=== PATIENT | male | born 1965 | race Caucasian/White ===

== ENCOUNTER 2024-12-01 02:36 | Day surgery (SDC) | payer OTHER, SELFPAY ==
[2024-11-18 14:38] VITALS: BMI 23.7
--- NOTE | 2024-11-18 14:45 | PC.NURSE ---
Report to the Outpatient Waiting Room, entrance under the green pavilion located off [facility], at time _1100__ on date _12/01/24_. Planned Procedure Time: _1300_.? Time changes happen often and if your time is changed the preop area will call you the afternoon before. - You and your visitor will be asked to self-screen and do not enter if you have any COVID symptoms. Please call surgeon if you need to reschedule. - A mask is optional within the hospital at this time. Patients may have clear liquids (water, carbonated beverages, clear teas, apple juice) until 3 hours prior to surgery with a maximum of 20 ounces. - No food from midnight until time of surgery and no smoking, or chewing tobacco (or any form of nicotine). No chewing gum, candy or mints. - Infants may have breast milk until 4 hours before surgery, infant formula 6 hours prior to surgery. - Children will be allowed to drink immediately following surgery.? If applicable, please bring a bottle or sippy cup to assist with drinking. Juice, water, soda, and popsicles are readily available.? For infants on formula, please bring formula the day of surgery.? Pacifiers are allowed. Take only the following medications with a SIP of water on the morning of surgery: ___AMLODIPINE, NEBIVOLOL DO NOT STOP ANY OF YOUR OTHER PRESCRIPTION MEDICATIONS PRIOR TO SURGERY EXCEPT THE FOLLOWING Hold all vitamins and supplements for 3 days per anesthesiologist. Medications to discontinue per physician Date to take last dose Please no make-up, nail romanian, hairspray, perfume, deodorant, or body powder the day of surgery.? No jewelry (including any body piercings) or valuables the day of surgery, leave them at home.? Please take a shower or bath the night before, or the morning of, surgery with an antibacterial soap.? Wear comfortable, loose fitting clothing.? Children are encouraged to wear pajamas. - Jewelry must be removed prior to entering the operating room.? Rings and piercings that are not removed may be cut off. - The hospital will not accept responsibility for valuables.? - Please leave all valuables, including medications, at home the day of surgery. If you are going home after surgery, a licensed septic pump truck driver must drive you home.? - NO public transportation without another adult if you receive anesthesia. - We recommend that an adult stay with you for 24 hours following discharge. - We also recommend that you do not drive, make important decision, drink alcoholic beverages, or take any drugs that were not prescribed by your health care provider for at least 24 hours after your discharge time. For Pediatric surgeries, we recommend two adults accompany the child home. Follow any additional instructions given to you from your surgeon. Telephone instructions given to PATIENT__and asked if any additional questions and then verbalized understanding. Patient advised to call surgeon office or pre surgery nurse liaison [phone] if any additional questions.
[2024-12-01] VITALS (10 sets, daily range): BP systolic 105–150; BP diastolic 45–73; PULSE 48–87; RESP 12–22; TEMP 36–36.2; O2SAT 97–100
--- OUTSIDE RECORDS SUMMARY | 2024-12-01 02:39 | XMS_ITS | Clinical Summary ---
Author Organization [facility] Address [address] [place] [address] Phone Care Team Providers Care Weblogic Developer Name Role Phone Unavailable Primary Care Provider Unavailabl e Social History Tobacco Use Types Packs/Day Years Used Date Smoking Tobacco: Never Assessed Sex and Gender Information Value Date Recorded Sex Assigned at Not on file Gender Identity Not on file Sexual Orientation Not on file Plan of Treatment Health Maintenance Due Date Last Done Comments Diabetic Foot Exam 1974 Ophthalmology Exam 1974 Pneumococcal PPSV23 Highest Risk Adult (1 of 3 - PCV13 ) 11/24/1983 Influenza Vaccine (#1) 2024
--- OUTSIDE RECORDS SUMMARY | 2024-12-01 02:39 | XMS_ITS | Clinical Summary ---
Author Organization [facility] [address] [place] [address] Care Team Providers Care Database Manager Name Role Phone Maxime Keen MD Primary Care Provider [phone] Allergies No known active allergies Medications metFORMIN (GLUCOPHAGE) 500 mg tablet Take 1 tablet (500 mg total) by mouth 2 (two) times a day with meals Active losartan-hydroCH LOROthiazide (HYZAAR) 100-12.5 mg per tablet Take 1 tablet by mouth daily Active rosuvastatin (CRESTOR) 20 mg tablet Take 1 tablet (20 mg total) by mouth daily Active empagliflozin (JARDIANCE) 25 mg tablet Take 1 tablet (25 mg total) by mouth daily Active nebivoloL (BYSTOLIC) 20 mg tablet Take 1 tablet (20 mg total) by mouth daily Active amLODIPine (NORVASC) 10 mg tablet Take 1 tablet (10 mg total) by mouth daily Active Active Problems Problem Noted Date Diagnosed Date Pre-operative cardiovascular examination 024 Stage 2 chronic kidney disease 07/16/2024 Hyperlipidemia associated with type 2 diabetes m ellitus 07/16/2024 Hypertension associated with diabetes 07/16/2024 Encounters Date Type Department Care Team Description 11/18/2024 Telephone [facility] Cardiology [address] [place] [address] Stew Villeda MD 11/04/2024 9:37 AM SUPERVISOR INSTRUMENT MAINTENANCE - 11/04/2024 11:59 PM SUPERVISOR INSTRUMENT MAINTENANCE Hospital Encounter [address] [address] Mixed hyperlipidemia; Encounter for screening for malignant neoplasm of prostate Discharge Disposition: Discharge to home or self care 11/04/2024 9:15 AM SUPERVISOR INSTRUMENT MAINTENANCE Lab [facility] Outpatient Lab at [address] [address] Mixed hyperlipidemia (Primary Dx); Encounter for screening for malignant neoplasm of prostate from Last 3 Months Surgical History Surgery Date Site/Laterality Comments BACK SURGERY 09/02/1999 - 09/01/2000 Medical History Medical History Date Comments Diabetes mellitus (HCC) Hypertension Hyperlipidemia Family History Medical History Relation Name Comments Heart disease Father Hyperlipidemia Father Cancer Mother Relation Name Status Comments Father Mother Social History Tobacco Use Types Packs/Day Years Used Date Smoking Tobacco: Never Cigarettes Smokeless Tobacco: Never Tobacco Cessation:Counseling Given: Not Answered Sex and Gender Information Value Date Recorded Sex Assigned at Not on file Legal Sex Male 9:47 AM SUPERVISOR INSTRUMENT MAINTENANCE Gender Identity Not on file Sexual Orientation Not on file Obstetrics History Last Filed Vital Signs Vital Sign Reading Time Taken Comments Blood Pressure 132/84 08/28/2024 1:42 PM SUPERVISOR INSTRUMENT MAINTENANCE Pulse 66 08/28/2024 1:42 PM SUPERVISOR INSTRUMENT MAINTENANCE Temperature - - Respiratory Rate - - Oxygen Saturation 91% 08/28/2024 1:42 PM SUPERVISOR INSTRUMENT MAINTENANCE Inhaled Oxygen Concentration - - Weight 79.4 kg (175 lb) 08/28/2024 1:42 PM SUPERVISOR INSTRUMENT MAINTENANCE Height 177.8 cm (5' 10 ) 08/28/2024 1:42 PM SUPERVISOR INSTRUMENT MAINTENANCE Body Mass Index 25.11 08/28/2024 1:42 PM SUPERVISOR INSTRUMENT MAINTENANCE Plan of Treatment Health Maintenance Due Date Last Done Comments Colon Cancer Screening-Colonoscopy 1964 Depression Screening 1964 Hepatitis C Screening 1964 Dilated Eye Exam 1964 Foot Exam 1964 DTaP/Tdap/Td Vaccine (1 - Tdap) 11/24/1975 Hepatitis B Screening 1982 Regular Well Visit/Exam 18-64 1982 Pneumococcal vaccine <65 (1 of 2 - PCV) 11/24/1983 Zoster Vaccine (1 of 2) 2014 Influenza Vaccine (#1) 2024 Hemoglobin A1C 05/07/2025 11/04/2024 Albumin Creatinine Ratio, Urine 11/04/2025 5, 07/08/2024 Lipid Panel 11/04/2025 11/04/2024, 12/2 03/2024, 07/08/2024, Additional history exists eGFR 11/04/2025 11/04/2024, 11/0 02/2024, 03/25/2024, Additional history exists Prostate Cancer Screening-PSA 11/04/2026 11/04/2024, 03/25/2024 Procedures Procedure Name Priority Date/Time Associated Diagnosis Comments EGFR Routine 11/04/2024 9:37 AM SUPERVISOR INSTRUMENT MAINTENANCE Mixed hyperlipidemia Encounter for screening for malignant neoplasm of prostate DIFFERENTIAL AUTO Routine 11/04/2024 9:3 7 AM SUPERVISOR INSTRUMENT MAINTENANCE Mixed hyperlipidemia Encounter for screening for malignant neoplasm of prostate PSA DIAGNOSTIC Routine 11/04/2024 9:37 AM SUPERVISOR INSTRUMENT MAINTENANCE Mixed hyperlipidemia Encounter for screening for malignant neoplasm of prostate TSH Routine 11/04/2024 9:37 AM SUPERVISOR INSTRUMENT MAINTENANCE Mixed hyperlipidemia Encounter for screening for malignant neoplasm of prostate COMPREHENSIVE METABOLIC PANEL Routine 11/04/2024 9:37 AM SUPERVISOR INSTRUMENT MAINTENANCE Mixed hyperlipidemia Encounter for screening for malignant neoplasm of prostate CBC WITH AUTO DIFFERENTIAL Routine 11/04/2024 9:37 AM SUPERVISOR INSTRUMENT MAINTENANCE Mixed hyperlipidemia Encounter for screening for malignant neoplasm of prostate ALBUMIN CREATININE RATIO, URINE Routine 11/04/2024 9:37 AM SUPERVISOR INSTRUMENT MAINTENANCE Mixed hyperlipidemia Encounter for screening for malignant neoplasm of prostate LIPID PANEL Routine 11/04/2024 9:37 AM SUPERVISOR INSTRUMENT MAINTENANCE Mixed hyperlipidemia Encounter for screening for malignant neoplasm of prostate HEMOGLOBIN A1C Routine 11/04/2024 9:37 AM SUPERVISOR INSTRUMENT MAINTENANCE Mixed hyperlipidemia Encounter for screening for malignant neoplasm of prostate from Last 3 Months Results * (ABNORMAL) eGFR (11/04/2024 9:37 AM SUPERVISOR INSTRUMENT MAINTENANCE) eGFR 53(L) >=60 mL/min/1. 73 m2 Comment: Interpretive Data Reference Interval Normal >/= 90 mL/min/1.73m2 Mildly decreased* 60 - 89 mL/min/1.73m2 Mildly to moderately decreased 45 - 59 mL/min/1.73m2 Moderately to severely decreased 30 - 44 mL/min/1.73m2 Severely decreased 15 - 29 mL/min/1.73m2 Kidney Failure < 15 mL/min/1.73m2 *Relative to young adult level Estimated glomerular filtration rate is determined by the 2020 CKD-EPI equation recommended by the National Kidney Foundation (A Unifying Approach to GFR Estimation: Recommendations of the NKF-ASK Task Force on Reassessing the Inclusion of Race in Diagnosing Kidney Disease, JASN 2020). The CKD-EPI equation should not be used for patients with unstable renal function and has not been validated in children and those over 70. Current interpretive data was last reviewed 2021. Blood 11/04/2024 9:37 AM SUPERVISOR INSTRUMENT MAINTENANCE 11/04/2024 3:38 PM SUPERVISOR INSTRUMENT MAINTENANCE Sri Botello NP LAB BLOOD ORDERABLES nal Result [facility] [address] Department of Laboratories [place] [phone] * Differential, auto (11/04/2024 9:37 AM SUPERVISOR INSTRUMENT MAINTENANCE) Neutrophil abs 4.5 1.5 - 6.5 K/cumm Imm gran abs 0.0 0.0 - 0.1 K/cumm [facility] Lymphocyte abs 2.0 0.8 - 3.3 K/cumm [facility] Monocyte abs 0.4 0.2 - 0.8 K/cumm [facility] Eosinophil abs 0.3 0.0 - 0.5 K/cumm [facility] Basophil abs 0.1 0.0 - 0.1 K/cumm [facility] Neutrophil pct 61.9 % [facility] Comment: Interpretive Data Percent cell count reference ranges are not reported, since discordance with absolute values may lead to misinterpretation of CBC data. Current Interpretive Data was last revised on 2017. Imm gran pct 0.3 % [facility] Comment: Interpretive Data Percent cell count reference ranges are not reported, since discordance with absolute values may lead to misinterpretation of CBC data. Current Interpretive Data was last revised on 2017. Lymphocyte pct 28.0 % [facility] Comment: Interpretive Data Percent cell count reference ranges are not reported, since discordance with absolute values may lead to misinterpretation of CBC data. Current Interpretive Data was last revised on 2017. Monocyte pct 5.5 % [facility] Comment: Interpretive Data Percent cell count reference ranges are not reported, since discordance with absolute values may lead to misinterpretation of CBC data. Current Interpretive Data was last revised on 2017. Eosinophil pct 3.6 % [facility] Comment: Interpretive Data Percent cell count reference ranges are not reported, since discordance with absolute values may lead to misinterpretation of CBC data. Current Interpretive Data was last revised on 2017. Basophil pct 0.7 % [facility] Comment: Interpretive Data Percent cell count reference ranges are not reported, since discordance with absolute values may lead to misinterpretation of CBC data. Current Interpretive Data was last revised on 2017. Blood 11/04/2024 9:37 AM SUPERVISOR INSTRUMENT MAINTENANCE 11/04/2024 3:25 PM SUPERVISOR INSTRUMENT MAINTENANCE us Sri Botello NP LAB BLOOD ORDERABLES [facility] Result [facility] [address] [place] [address] * (ABNORMAL) CBC with auto differential (11/04/2024 9:37 AM SUPERVISOR INSTRUMENT MAINTENANCE) WBC 7.2 3.8 - 9.9 K/cumm Hgb 15.3 13.0 - 17.5 g/dL [facility] Hct 48.1 38.9 - 50.3 % [facility] Plt 266 150 - 400 K/cumm [facility] MPV 11.8 9.1 - 12.3 fL [facility] RBC 5.40 4.30 - 5.80 M/cumm [facility] MCV 89.1 81.3 - 96.4 fL [facility] MCH 28.3 27.1 - 33.3 pg [facility] MCHC 31.8(L) 32.3 - 35.7 g/dL [facility] RDW CV 13.2 11.1 - 14.9 % [facility] RDW SD 43.1 35.7 - 48.1 fL [facility] NRBC abs 0.00 0.00 - 0.01 K/cumm [facility] Blood 11/04/2024 9:37 AM SUPERVISOR INSTRUMENT MAINTENANCE 11/04/2024 3:25 PM SUPERVISOR INSTRUMENT MAINTENANCE Sri Botello PATIENT SERVICE REP LAB BLOOD ORDERABLES Fi nal Result Performing Organization Address City/[facility] Co de Phone Number [facility] [address] [place] [address] * Albumin Creatinine Ratio, Urine (11/04/2024 9:37 AM SUPERVISOR INSTRUMENT MAINTENANCE) Albumin Ur <12.0 mg/L Comment: Interpretive Data No reference range established. Current interpretive data was last revised 2019. Creatinine Ur 105.3 mg/dL [facility] Comment: Interpretive Data No reference range established. Current interpretive data was last revised 2019. Albumin Creatinine Ratio, Ur <11 1 - 29 mg/g [facility] Urine (Urine, Clean Catch) 11/04/2024 9:37 AM SUPERVISOR INSTRUMENT MAINTENANCE 11/04/2024 3:25 PM SUPERVISOR INSTRUMENT MAINTENANCE Narrative [facility] - 11/04/2024 4:08 PM SUPERVISOR INSTRUMENT MAINTENANCE Fax results to [phone] Sri Botello Sri Botello PATIENT SERVICE REP LAB URINE ORDERABLES Fi nal Result Performing Organization Address [facility] Co de Phone Number [facility] [address] Department [place] [employer] [address] * TSH (11/04/2024 9:37 AM SUPERVISOR INSTRUMENT MAINTENANCE) Thyroid Stimulating Hormone 1.04 0.30 - 4.20 mcIUnit/mL Blood Venous blood specimen / Unknown 11/04/2024 9:37 AM SUPERVISOR INSTRUMENT MAINTENANCE 11/04/2024 3:25 PM SUPERVISOR INSTRUMENT MAINTENANCE Sri Botello PATIENT SERVICE REP LAB BLOOD ORDERABLES Fi nal Result Performing Organization Address [facility] Co de Phone Number [facility] [address] [facility] [employer] [place], [place] [id number] * PSA diagnostic (11/04/2024 9:37 AM SUPERVISOR INSTRUMENT MAINTENANCE) PSA-Total 1.08 <=3.90 ng/mL Comment: Interpretive Data AGE SEX REFERENCE INTERVAL 0 minutes-150 years Female None 0 minutes-49 years Male None 50-59 years Male 0-3.90 60-69 years Male 0-5.40 70-79 years Male 0-6.20 80-150 years Male 0-6.20 The Amina PSA Total assay procedure was used. Results from different manufacturers or methods may not be comparable. Serial testing should be performed using the same method. Current interpretive data last revised 22. Blood Venous blood specimen / Unknown 11/04/2024 9:37 AM SUPERVISOR INSTRUMENT MAINTENANCE 11/04/2024 3:25 PM SUPERVISOR INSTRUMENT MAINTENANCE Narrative [facility] - 11/04/2024 5:35 PM SUPERVISOR INSTRUMENT MAINTENANCE Fax results to [phone] Sri Botello Sri Botello PATIENT SERVICE REP LAB BLOOD ORDERABLES Fi nal Result Performing Organization Address [facility] de Phone Number [facility] [address] [facility] [place] [address] * (ABNORMAL) Hemoglobin A1c (11/04/2024 9:37 AM SUPERVISOR INSTRUMENT MAINTENANCE) Hgb A1C 9.7(H) 4.0 - 5.6 % Estimated Average Glucose 232 mg/dL [facility] Comment: The ADA recommends reporting an estimated Average Glucose (eAG) with all Hemoglobin A1c results using the equation derived from a study of 507 normal and diabetic adults. Minority populations were underrepresented and children were not included. (Diabetes Care 31:9260-4057, 2008). The eAG is not equivalent to a fasting glucose. Blood Venous blood specimen / Unknown 11/04/2024 9:37 AM SUPERVISOR INSTRUMENT MAINTENANCE 11/04/2024 3:25 PM SUPERVISOR INSTRUMENT MAINTENANCE Narrative [facility] - 11/04/2024 4:11 PM SUPERVISOR INSTRUMENT MAINTENANCE Fax results to [phone] Sri Botello Sri Botello NP LAB BLOOD ORDERABLES Fi nal Result [facility] [address] [place] [address] * (ABNORMAL) Lipid panel (11/04/2024 9:37 AM SUPERVISOR INSTRUMENT MAINTENANCE) Cholesterol 204(H) 30 - 199 mg/dL Comment: Interpretive Data Ages < or = 19 years Acceptable: <170 mg/dL Borderline high: 170-199 mg/dL High: >or= 200 mg/dL Ages > or = 20 years Desirable: <200 mg/dL Borderline high: 200-239 mg/dL High: >or= 240 mg/dL Literature References: 1. Expert Panel on Integrated Guidelines for Cardiovascular Health and Risk Reduction in Children and Adolescents. Pediatrics 2011;128:S213 2. NCEP Expert Panel. Circulation 2004;110:227 Current Interpretive Data was last revised on 2018. Triglycerides 155(H) <=149 mg/dL [facility] Comment: Interpretive Data Ages < or = 9 years Acceptable: <75 mg/dL Borderline high: 75-99 mg/dL High: >or= 100 mg/dL Ages 10 to 20 years Acceptable: <90 mg/dL Borderline high: 90-129 mg/dL High: >or= 130 mg/dL Ages > or = 20 years Desirable: <150 mg/dL Borderline high: 150-199 mg/dL High: 200-499 mg/dL Very high: >or= 499 mg/dL Literature References: 1. Expert Panel on Integrated Guidelines for Cardiovascular Health and Risk Reduction in Children and Adolescents. Pediatrics 2011;128:S213 2. NCEP Expert Panel. Circulation 2004;110:227 Current Interpretive Data was last revised on 2018. HDL 45 >=40 mg/dL [facility] Comment: Interpretive Data Ages < or = 19 years Acceptable: >45 mg/dL Borderline low: 40-45 mg/dL Low: <40 mg/dL Ages > or = 20 years Desirable: >or= 60 mg/dL Low: <40 mg/dL Literature References: 1. Expert Panel on Integrated Guidelines for Cardiovascular Health and Risk Reduction in Children and Adolescents. Pediatrics 2011;128:S213 2. NCEP Expert Panel. Circulation 2004;110:227 Current Interpretive Data was last revised on 2018. LDL, calculated 131(H) <=129 mg/dL [facility] Comment: Interpretive Data Ages < or = 19 years Acceptable: <110 mg/dL Borderline high: 110-129 mg/dL High: >or= 130 mg/dL Ages > or = 20 years Optimal: <100 mg/dL Near optimal: 100-129 mg/dL Borderline high: 130-159 mg/dL High: >160 mg/dL Calculated using the Dmitri LDL-C estimating equation. This equation was implemented on 2024. Prior to this date LDL-C was estimated using the Friedewald equation. Literature References: 1. Expert Panel on Integrated Guidelines for Cardiovascular Health and Risk Reduction in Children and Adolescents. Pediatrics 2011;128:S213 2. NCEP Expert Panel. Circulation 2004;110:227 3. Dmitri Mclaughlin et al. ERASMO Cardiol. 2019December 31;5(5):540-548. doi: 10.1001/jamacardio.2020.0013 Current Interpretive Data was last revised on 2024. Non-HDL Cholesterol 159 mg/dL [facility] Comment: Interpretive Data Ages < or = 19 years Acceptable: <120 mg/dL Borderline high: 120-144 mg/dL High: >145 mg/dL Ages > or = 20 years When triglycerides are >200 mg/dL, Non-HDL cholesterol is a secondary target of therapy with treatment goals that are 30 mg/dL greater than the LDL cholesterol target. Literature References: 1. Expert Panel on Integrated Guidelines for Cardiovascular Health and Risk Reduction in Children and Adolescents. Pediatrics 2011;128:S213 2. NCEP Expert Panel. Circulation 2004;110:227 Current Interpretive Data was last revised on 2018. Chol/HDL ratio 5 [facility] Blood Venous blood specimen / Unknown 11/04/2024 9:37 AM SUPERVISOR INSTRUMENT MAINTENANCE 11/04/2024 3:25 PM SUPERVISOR INSTRUMENT MAINTENANCE Narrative [facility] - 11/04/2024 4:26 PM SUPERVISOR INSTRUMENT MAINTENANCE Fax results to [phone] Sri Botello Sri Botello PATIENT SERVICE REP LAB BLOOD ORDERABLES Fi nal Result [facility] [address] [place] [address] * (ABNORMAL) Comprehensive metabolic panel (11/04/2024 9:37 AM SUPERVISOR INSTRUMENT MAINTENANCE) Sodium 140 135 - 145 mmol/L Potassium, pl 4.3 3.3 - 4.9 mmol/L [facility] Chloride 101 97 - 110 mmol/L [facility] CO2 26 22 - 32 mmol/L [facility] Anion gap 13 2 - 15 mmol/L [facility] BUN 21 6 - 25 mg/dL [facility] Creatinine 1.50(H) 0.80 - 1.30 mg/dL [facility] Glucose 232(H) 70 - 199 mg/dL [facility] Comment: Interpretive Data Fasting glucose >/= 126 mg/dl is diagnostic for diabetes. Fasting is defined as no caloric intake for at least 8 hours. Fasting glucose between 100 mg/dl to 125 mg/dl is diagnostic of prediabetes. In a patient with classic symptoms of hyperglycemia or hyperglycemic crisis, a random glucose >/= 200 mg/dl is diagnostic for diabetes. In the absence of unequivocal hyperglycemia, results should be confirmed by repeat testing. The classification and Diagnosis of Diabetes Diabetes Care 202; 46: S19-S40. Current interpretive data was last revised 2022. Calcium 9.6 8.5 - 10.3 mg/dL [facility] Bilirubin, total 0.6 0.1 - 1.2 mg/dL [facility] Protein, pl 6.9 6.5 - 8.5 g/dL [facility] Albumin 4.2 3.5 - 5.0 g/dL [facility] Alk phos 62 40 - 130 Units/L [facility] ALT 19 7 - 55 Units/L [facility] AST 21 10 - 50 Units/L [facility] Blood Venous blood specimen / Unknown 11/04/2024 9:37 AM SUPERVISOR INSTRUMENT MAINTENANCE 11/04/2024 3:25 PM SUPERVISOR INSTRUMENT MAINTENANCE Narrative [facility] - 11/04/2024 4:26 PM SUPERVISOR INSTRUMENT MAINTENANCE Fax results to [phone] Sri Botello Sri Botello PATIENT SERVICE REP LAB BLOOD ORDERABLES Fi nal Result [facility] [address] [place] [address] from Last 3 Months Insurance [facility] [employer] Address: [address] [place] [address] Care Teams Database Manager Relationship Specialty Start Date End Date Maxime Keen MD PCP - General Family Medicine 04/20/22
--- OUTSIDE RECORDS SUMMARY | 2024-12-01 02:39 | XMS_ITS | Referral Summary ---
Author Organization [facility] [address] Address [address] [place] [id number] Care Team Providers Care Supervisor Pre Wave Name Role Phone Maxime Keen MD Primary Care Provider [phone] Encounters Date Type Department Care Team Description 11/18/2024 Telephone [facility] Cardiology [address] [place] [address] Stew Villeda MD 11/04/2024 9:37 AM CHANCERY CLERK - 11/04/2024 11:59 PM CHANCERY CLERK [place] [address] Mixed hyperlipidemia; Encounter for screening for malignant neoplasm of prostate Discharge Disposition: Discharge to home or self care 11/04/2024 9:15 AM CHANCERY CLERK Lab [facility] Outpatient Lab at [address] [address] Mixed hyperlipidemia (Primary Dx); Encounter for screening for malignant neoplasm of prostate from Last 3 Months Allergies No known active allergies Medications metFORMIN [...] ellitus 07/16/2024 Hypertension associated with diabetes 07/16/2024 Social History Tobacco Use Types Packs/Day Years Used Date Smoking Tobacco: Never Cigarettes Smokeless Tobacco: Never Tobacco Cessation:Counseling Given: Not Answered Sex and Gender Information Value Date Recorded Sex Assigned at Not on file Legal Sex Male 9:47 AM CHANCERY CLERK Gender Identity Not on file Sexual Orientation Not on file Last Filed Vital Signs Vital Sign Reading Time Taken Comments Blood Pressure 132/84 08/28/2024 1:42 PM CHANCERY CLERK Pulse 66 08/28/2024 1:42 PM CHANCERY CLERK Temperature - - Respiratory Rate - - Oxygen Saturation 91% 08/28/2024 1:42 PM CHANCERY CLERK Inhaled Oxygen Concentration - - Weight 79.4 kg (175 lb) 08/28/2024 1:42 PM CHANCERY CLERK Height 177.8 cm (5' 10 ) 08/28/2024 1:42 PM CHANCERY CLERK Body Mass Index 25.11 08/28/2024 1:42 PM CHANCERY CLERK Plan of Treatment Not on file Procedures Procedure Name Priority Date/Time Associated Diagnosis Comments EGFR Routine 11/04/2024 9:37 AM CHANCERY CLERK Mixed hyperlipidemia Encounter for screening for malignant neoplasm of prostate DIFFERENTIAL AUTO Routine 11/04/2024 9:3 7 AM CHANCERY CLERK Mixed hyperlipidemia Encounter for screening for malignant neoplasm of prostate PSA DIAGNOSTIC Routine 11/04/2024 9:37 AM CHANCERY CLERK Mixed hyperlipidemia Encounter for screening for malignant neoplasm of prostate TSH Routine 11/04/2024 9:37 AM CHANCERY CLERK Mixed hyperlipidemia Encounter for screening for malignant neoplasm of prostate COMPREHENSIVE METABOLIC PANEL Routine 11/04/2024 9:37 AM CHANCERY CLERK Mixed hyperlipidemia Encounter for screening for malignant neoplasm of prostate CBC WITH AUTO DIFFERENTIAL Routine 11/04/2024 9:37 AM CHANCERY CLERK Mixed hyperlipidemia Encounter for screening for malignant neoplasm of prostate ALBUMIN CREATININE RATIO, URINE Routine 11/04/2024 9:37 AM CHANCERY CLERK Mixed hyperlipidemia Encounter for screening for malignant neoplasm of prostate LIPID PANEL Routine 11/04/2024 9:37 AM CHANCERY CLERK Mixed hyperlipidemia Encounter for screening for malignant neoplasm of prostate HEMOGLOBIN A1C Routine 11/04/2024 9:37 AM CHANCERY CLERK Mixed hyperlipidemia Encounter for screening for malignant neoplasm of prostate from Last 3 Months Results * (ABNORMAL) eGFR (11/04/2024 9:37 AM CHANCERY CLERK) eGFR 53(L) >=60 mL/min/1. 73 m2 Comment: [...] of Race in Diagnosing Kidney Disease, JASN 202). The CKD-EPI equation should not be used for patients with unstable renal function and has not been validated in children and those over 70. Current interpretive data was last reviewed 2021. Blood 11/04/2024 9:37 AM CHANCERY CLERK 11/04/2024 3:38 PM CHANCERY CLERK us Sri Botello NP LAB BLOOD ORDERABLES Fi nal Result [facility]IA FINE [address] [place] [address] * Differential, auto (11/04/2024 9:37 AM CHANCERY CLERK) Neutrophil abs 4.5 1.5 - 6.5 K/cumm Imm gran abs 0.0 0.0 - 0.1 K/cumm [facility] Lymphocyte abs 2.0 0.8 - 3.3 K/cumm [facility] Monocyte abs 0.4 0.2 - 0.8 K/cumm [facility] Eosinophil abs 0.3 0.0 - 0.5 K/cumm [facility] Basophil abs 0.1 0.0 - 0.1 K/cumm [facility] Neutrophil pct 61.9 % [facility] Comment: Interpretive Data Percent cell count reference ranges are not reported, since discordance with absolute values may lead to misinterpretation of CBC data. Current Interpretive Data was last revised on 2017. Imm gran pct 0.3 % [facility] Comment: Interpretive Data Percent cell count reference ranges are not reported, since discordance with absolute values may lead to misinterpretation of CBC data. Current Interpretive Data was last revised on 2017. Lymphocyte pct 28.0 % [facility] Comment: Interpretive Data Percent cell count reference ranges are not reported, since discordance with absolute values may lead to misinterpretation of CBC data. Current Interpretive Data was last revised on 2017. Monocyte pct 5.5 % [facility] Comment: Interpretive Data Percent cell count reference ranges are not reported, since discordance with absolute values may lead to misinterpretation of CBC data. Current Interpretive Data was last revised on 2017. Eosinophil pct 3.6 % [facility] Comment: Interpretive Data Percent cell count reference ranges are not reported, since discordance with absolute values may lead to misinterpretation of CBC data. Current Interpretive Data was last revised on 2017. Basophil pct 0.7 % [facility] Comment: Interpretive Data Percent cell count reference ranges are not reported, since discordance with absolute values may lead to misinterpretation of CBC data. Current Interpretive Data was last revised on 2017. Blood 11/04/2024 9:37 AM CHANCERY CLERK 11/04/2024 3:25 PM CHANCERY CLERK us Sri Botello [employer] [facility] LAB BLOOD ORDERABLES Fi nal Result [facility]IA FINE [address] Department [place] [address] * (ABNORMAL) CBC with auto differential (11/04/2024 9:37 AM CHANCERY CLERK) [facility] WBC 7.2 3.8 - 9.9 K/cumm Hgb 15.3 13.0 - 17.5 g/dL [facility] Hct 48.1 38.9 - 50.3 % [facility] Plt 266 150 - 400 K/cumm [facility] MPV 11.8 9.1 - 12.3 fL [facility] RBC 5.40 4.30 - 5.80 M/cumm [facility] MCV 89.1 81.3 - 96.4 fL [facility] MCH 28.3 27.1 - 33.3 pg [facility] MCHC 31.8(L) 32.3 - 35.7 g/dL [facility] RDW CV 13.2 11.1 - 14.9 % [facility] RDW SD 43.1 35.7 - 48.1 fL [facility] NRBC abs 0.00 0.00 - 0.01 K/cumm [facility] Blood 11/04/2024 9:37 AM CHANCERY CLERK 11/04/2024 3:25 PM CHANCERY CLERK Sri Botello [employer] LAB BLOOD ORDERABLES Fi nal Result ANAMARIA FINE [address] Department [place] [address] * Albumin Creatinine Ratio, Urine (11/04/2024 9:37 AM CHANCERY CLERK) [facility] Albumin Ur <12.0 mg/L Comment: Interpretive Data No reference range established. Current interpretive data was last revised 2019. Creatinine Ur 105.3 mg/dL [facility] Comment: Interpretive Data No reference range established. Current interpretive data was last revised 2019. Albumin Creatinine Ratio, Ur <11 1 - 29 mg/g [facility] Urine (Urine, Clean Catch) 11/04/2024 9:37 AM CHANCERY CLERK 11/04/2024 3:25 PM CHANCERY CLERK Narrative ANAMARIA - 11/04/2024 4:08 PM CHANCERY CLERK Fax results to [phone] Sri Botello us Sri Botello [employer] LAB URINE ORDERABLES Fi nal Result Performing Organization Address [facility] Co de Phone Number ANAMARIA [address] [facility] [place] [address] * TSH (11/04/2024 9:37 AM CHANCERY CLERK) Thyroid Stimulating Hormone 1.04 0.30 - 4.20 mcIUnit/mL Blood Venous blood specimen / Unknown 11/04/2024 9:37 AM CHANCERY CLERK 11/04/2024 3:25 PM CHANCERY CLERK Sri Botello [employer] LAB BLOOD ORDERABLES Fi nal Result Performing Organization Address [facility] de Phone Number [facility] [address] [place] [address] * PSA diagnostic (11/04/2024 9:37 AM CHANCERY CLERK) PSA-Total 1.08 <=3.90 ng/mL Comment: Interpretive Data [...] blood specimen / Unknown 11/04/2024 9:37 AM CHANCERY CLERK 11/04/2024 3:25 PM CHANCERY CLERK Narrative ANAMARIA - 11/04/2024 5:35 PM CHANCERY CLERK Fax results to [phone] Sri Botello Sri Botello [employer] LAB BLOOD ORDERABLES Fi nal Result Performing Organization Address [facility]/State/ZIP Co de Phone Number ANAMARIA [address] Department [place] [address] * (ABNORMAL) Hemoglobin A1c (11/04/2024 9:37 AM CHANCERY CLERK) Hgb A1C 9.7(H) 4.0 - 5.6 % Estimated Average Glucose 232 mg/dL [facility] Comment: The ADA recommends reporting an estimated Average Glucose (eAG) with all Hemoglobin A1c results using the equation derived from a study of 507 normal and diabetic adults. Minority populations were underrepresented and children were not included. (Diabetes Care 31:6879-3298, 2008). The eAG is not equivalent to a fasting glucose. Blood Venous blood specimen / Unknown 11/04/2024 9:37 AM CHANCERY CLERK 11/04/2024 3:25 PM CHANCERY CLERK Narrative ANAMARIA - 11/04/2024 4:11 PM CHANCERY CLERK Fax results to [phone] Sri Botello Sri Botello [employer] LAB BLOOD ORDERABLES nal Result ANAMARIA [address] Department [place] [address] * (ABNORMAL) Lipid panel (11/04/2024 9:37 AM CHANCERY CLERK) Cholesterol 204(H) 30 - 199 mg/dL Comment: [...] on 2018. Triglycerides 155(H) <=149 mg/dL [facility]INE Comment: Interpretive Data Ages [...] 2018. LDL, calculated 131(H) <=129 mg/dL ANAMARIA Comment: Interpretive Data Ages < [...] NCEP Expert Panel. Circulation 2004;110:227 3. Dmitri Thomas al. ERASMO Cardiol. 2020 December 31;5(5):540-548. doi: 10.1001/jamacardio.2020.0013 Current Interpretive Data was last revised on 2024. Non-HDL Cholesterol 159 mg/dL ANAMARIA Comment: Interpretive Data Ages < [...] last revised on 2018. Chol/HDL ratio 5 [facility]ER Blood Venous blood specimen / Unknown 11/04/2024 9:37 AM CHANCERY CLERK 11/04/2024 3:25 PM CHANCERY CLERK Narrative [facility] CH - 11/04/2024 4:26 PM CHANCERY CLERK Fax results to [phone] Sri Botello Sri Botello [employer] LAB BLOOD ORDERABLES nal Result [facility] [address] Department [place] [address] * (ABNORMAL) Comprehensive metabolic panel (11/04/2024 9:37 AM CHANCERY CLERK) Sodium 140 135 - 145 mmol/L Potassium, pl 4.3 3.3 - 4.9 mmol/L [facility] Chloride 101 97 - 110 mmol/L [facility] CO2 26 22 - 32 mmol/L [facility] Anion gap 13 2 - 15 mmol/L [facility] BUN 21 6 - 25 mg/dL [facility] Creatinine 1.50(H) 0.80 - 1.30 mg/dL [facility] Glucose 232(H) 70 - 199 mg/dL [facility] Comment: Interpretive Data Fasting glucose >/= 126 [...] blood specimen / Unknown 11/04/2024 9:37 AM CHANCERY CLERK 11/04/2024 3:25 PM CHANCERY CLERK Narrative [facility]ERNER CH - 11/04/2024 4:26 PM CHANCERY CLERK Fax results to [phone] Sri Botello Sri Botello [employer] LAB BLOOD ORDERABLES nal Result ANAMARIA [address] [place] [address] from Last 3 Months Insurance [facility] [employer] Address: [facility] [id number] [place] [address] Care Teams Supervisor Pre Wave Relationship Specialty Start Date End Date Maxime Keen MD PCP - General Family Medicine 04/20/22
--- OUTSIDE RECORDS SUMMARY | 2024-12-01 02:39 | XMS_ITS | Clinical Summary ---
Author Organization [facility] Address [facility] [place] [address] Care Team Providers Care Sample Hand Name Role Phone Unavailable Primary Care Provider Unavailabl e Social History Tobacco Use Types Packs/Day Years Used Date Smoking Tobacco: Never Assessed Sex and Gender Information Value Date Recorded Sex Assigned at Not on file Legal Sex Male 8:19 PM CDT Gender Identity Not on file Sexual Orientation Not on file Plan of Treatment Health Maintenance Due Date Last Done Comments Colorectal Cancer Screening Colonoscopy (10 Years) 1964 Annual Physical 11/24/1967 Hepatitis C 1982 DTaP, Tdap and Td Vaccines ( 1 - Tdap) 11/24/1983 Zoster Vaccines (1 of 2) 2014 COVID-19 Vaccine ( - 2023-2 5 season) 2024 Influenza Adult (#1) 2024 RSV Immunization or 60+ Years (1 - 1-dose 75+ series) 11/24/2039 Meningococcal B Vaccine Aged Out No l onger eligible based on patient's age to complete this topic Meningococcal Vaccine Aged Out No david bebeto eligible based on patient's age to complete this topic Pneumococcal Vaccine: Pediat rics (0 to 5 Years) and At-Risk Patients (6 to 64 Years) Aged Out No longer eligible b ased on patient's age to complete this topic RSV Immunizations Under 20 Months Aged Out No longer eligible based on patient's age to complete this topic
--- NOTE | 2024-12-01 07:20 | WPDHPUPDATE1 ---
History and Physical Update Update Date/Time: 12/01/24 07:20 History and Physical has been reviewed, including an updated exam of the patient. There are NO changes in the patient's condition. Risks, benefits, and alternatives have been discussed and questions answered. Patient agrees to proceed with procedure.
[2024-12-01] MEDS: KETOROLAC 15 MG/ML VIAL (*BKC) IV PUSH (11:35)
[2024-12-01] MEDS: ACETAMINOPHEN 500 MG TABLET 1000 MG PO (11:35)
[2024-12-01 11:54] LABS: Anion Gap 11 mmol/L (4-12); Blood Urea Nitrogen 29 mg/dL (9-20); Calcium 9.9 mg/dL (8.4-10.2); Carbon Dioxide 28 mmol/L (22-30); Chloride 104 mmol/L (98-107); Estimated CRCL calculation 54 ml/min; Estimated Glomerular Filt Rate 53; Glucose 119 mg/dL (65-110); Potassium 4.2 mmol/L (3.4-5.0); Sodium 143 mmol/L (137-145)
--- NOTE | 2024-12-01 12:08 | P.PNAN_ITS ---
Anes - Eval Pre Procedure Procedure: Operation Date: 12/01/24 13:00 Proposed Procedures p Right Shoulder Arthroscopic Biceps Tenodesis with Subacromial Decompression - Aj Solitario MD Date/Time: 12/01/24 12:08 Pre Op Diagnosis: Right Rotator Cuff and Biceps Tendonitis Patient Data Age: 59 Gender: M Height: 1.78 m Weight: 75 kg Last Vital Signs Temp 97.1 F L 12/01/24 11:35 Pulse 68 12/01/24 11:35 Resp 14 12/01/24 11:35 BP 150/70 H 12/01/24 11:35 Pulse Ox 100 12/01/24 11:35 O2 Del Method Room Air 12/01/24 11:35 Allergies Allergy/AdvReac Type Severity Reaction Status Date / Time No Known Allergies Allergy Mild Verified 12/01/24 11:55 Home Medications ?Medication ?Instructions ?Recorded ?Confirmed ?Type blood sugar diagnostic (Blood #120 ea 12/14/20 11/18/24 Rx Glucose Test strips) blood-glucose meter #1 ea 12/14/20 11/18/24 Rx lancets #100 ea 12/14/20 11/18/24 Rx cyclobenzaprine 10 mg tablet 10 mg PO TID PRN muscle spasm #30 05/11/24 11/18/24 Rx tabs rosuvastatin 20 mg tablet 20 mg PO DAILY #90 tabs 06/27/24 11/18/24 Rx nebivolol 20 mg tablet See Rx Instructions .Route 10/15/24 12/01/24 Rx .COMPLEX #90 tabs amlodipine 10 mg tablet 10 mg PO DAILY #90 tabs 11/12/24 12/01/24 Rx blood-glucose sensor (FreeStyle #1 ea 11/12/24 11/18/24 Rx Kelsey 3 Plus Sensor device) insulin glargine 100 unit/mL (3 10 unit (0.1 mL) subcut QPM #3 mL 11/12/24 11/18/24 Rx mL) subcutaneous pen (Lantus Solostar U-100 Insulin) losartan 100 1 tablet PO DAILY #90 tabs 11/12/24 11/18/24 Rx mg-hydrochlorothiazide 12.5 mg tablet metformin 500 mg tablet,extended 500 mg PO DAILY #180 tabs 11/12/24 11/18/24 Rx release 24 hr semaglutide 7 mg tablet (Rybelsus) 7 mg PO DAILY #30 tabs 11/12/24 11/18/24 Rx empagliflozin 25 mg tablet 25 mg PO DAILY #90 tabs 11/24/24 Rx (Jardiance) hydrocodone 5 mg-acetaminophen 325 1 - 2 tablet PO Q4-6H PRN pain #30 12/01/24 Rx mg tablet tabs Laboratory Tests 12/01/24 11:25 Sodium 143 mmol/L (137-145) Potassium 4.2 mmol/L (3.4-5.0) Chloride 104 mmol/L (98-107) Carbon Dioxide 28 mmol/L (22-30) Anion Gap 11 mmol/L (4-12) BUN 29 H mg/dL (9-20) Creatinine 1.36 H mg/dL (0.7-1.3) Estim Creat Clear Calc 54 ml/min Estimated GFR 53 L (59 - ) Glucose 119 H mg/dL (65-110) Calcium 9.9 mg/dL (8.4-10.2) Patient hx anesthesia problems: none Family hx anesthesia problems: none Results Review: All pre-operative results and documents have been reviewed as part of the pre- operative evaluation. [facility] Past Medical History Medical History (Updated 12/01/24 @ 12:09 by Pérez Santiago Jr., CRNA) Hypertension Diabetes mellitus Screening for diabetes mellitus Uncontrolled diabetes mellitus Controlled type 2 diabetes mellitus Screen for colon cancer Screening for prostate cancer Mixed hyperlipidemia Surgical History Surgical History History of back surgery Family History Family History Father Heart disease Tobacco abuse Mother Lung cancer Tobacco abuse Sibling No problems noted. Social History Social History (Updated 11/18/24 @ 09:54 by Andie Bhatt CMA) Smoking status: Never smoker Second hand tobacco smoke exposure: Yes Alcohol intake: former Alcohol use details: Pt drinks beer couple times per month. 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
--- NOTE | 2024-12-01 12:47 | WPDANESEPPF ---
Anes - Initial Pre Proc Eval Procedure: Operation Date: 12/01/24 13:00 Proposed Procedures p Right Shoulder Arthroscopic Biceps Tenodesis with Subacromial Decompression - Aj Solitario MD Date/Time: 12/01/24 12:47 Surgeon: Aj Solitario MD Pre Op Diagnosis: Right Rotator Cuff and Biceps Tendonitis Patient Data Age: 59 Gender: M Height: 1.78 m Weight: 75 kg Last Vital Signs Temp 97.1 F L 12/01/24 11:35 Pulse 68 12/01/24 11:35 Resp 14 12/01/24 11:35 BP 150/70 H 12/01/24 11:35 Pulse Ox 100 12/01/24 11:35 O2 Del Method Room Air 12/01/24 11:35 Allergies Allergy/AdvReac Type Severity Reaction Status Date / Time No Known Allergies Allergy Mild Verified 12/01/24 11:55 Home Medications ?Medication ?Instructions ?Recorded ?Confirmed ?Type blood sugar diagnostic (Blood #120 ea 12/14/20 11/18/24 Rx Glucose Test strips) blood-glucose meter #1 ea 12/14/20 11/18/24 Rx lancets #100 ea 12/14/20 11/18/24 Rx cyclobenzaprine 10 mg tablet 10 mg PO TID PRN muscle spasm #30 05/11/24 11/18/24 Rx tabs rosuvastatin 20 mg tablet 20 mg PO DAILY #90 tabs 06/27/24 11/18/24 Rx nebivolol 20 mg tablet See Rx Instructions .Route 10/15/24 12/01/24 Rx .COMPLEX #90 tabs amlodipine 10 mg tablet 10 mg PO DAILY #90 tabs 11/12/24 12/01/24 Rx blood-glucose sensor (FreeStyle #1 ea 11/12/24 11/18/24 Rx Kelsey 3 Plus Sensor device) insulin glargine 100 unit/mL (3 10 unit (0.1 mL) subcut QPM #3 mL 11/12/24 11/18/24 Rx mL) subcutaneous pen (Lantus Solostar U-100 Insulin) losartan 100 1 tablet PO DAILY #90 tabs 11/12/24 11/18/24 Rx mg-hydrochlorothiazide 12.5 mg tablet metformin 500 mg tablet,extended 500 mg PO DAILY #180 tabs 11/12/24 11/18/24 Rx release 24 hr semaglutide 7 mg tablet (Rybelsus) 7 mg PO DAILY #30 tabs 11/12/24 11/18/24 Rx empagliflozin 25 mg tablet 25 mg PO DAILY #90 tabs 11/24/24 Rx (Jardiance) hydrocodone 5 mg-acetaminophen 325 1 - 2 tablet PO Q4-6H PRN pain #30 12/01/24 Rx mg tablet tabs Laboratory Tests 12/01/24 11:25 Sodium 143 mmol/L (137-145) Potassium 4.2 mmol/L (3.4-5.0) Chloride 104 mmol/L (98-107) Carbon Dioxide 28 mmol/L (22-30) Anion Gap 11 mmol/L (4-12) BUN 29 H mg/dL (9-20) Creatinine 1.36 H mg/dL (0.7-1.3) Estim Creat Clear Calc 54 ml/min Estimated GFR 53 L (59 - ) Glucose 119 H mg/dL (65-110) Calcium 9.9 mg/dL (8.4-10.2) Patient hx anesthesia problems: none Family hx anesthesia problems: none Results Review: All pre-operative results and documents have been reviewed as part of the pre-operative evaluation. [facility] Past Medical History Medical History Hypertension Diabetes mellitus Screening for diabetes mellitus Uncontrolled diabetes mellitus Controlled type 2 diabetes mellitus Screen for colon cancer Screening for prostate cancer Mixed hyperlipidemia Surgical History Surgical History History of back surgery Family History Family History Father Heart disease Tobacco abuse Mother Lung cancer Tobacco abuse Sibling No problems noted. Social History Social History Smoking status: Never smoker Second hand tobacco smoke exposure: Yes Alcohol intake: former Alcohol use details: Pt drinks beer couple times per month. 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[employer] Gender identity (if verbalized by the patient): Male Sexual Orientation (if Verbalized by the Patient): Straight or Heterosexual Agree to blood products: Yes Anes - Eval Final PreProcedure Day of Procedure 12/01/24 12:47 Patient weight: normal Lungs: normal air movement Airway: Mallampati scale class II Neurological: alert and oriented Last oral intake: >/= 8 hours ASA classification: II Emergent: no Anesthetic plan: proceed Anesthesia type and monitoring: general ETT and standard monitoring Results Review: All pre-operative results and documents have been reviewed as part of the pre-operative evaluation. HTN, DM fsbs 119, CKD. Pt w good fuctional status, no cp or sob w activity. Discussed GA and poss ISB w pt and . US not available in preop area at this time, we discussed poss post op ISB if pt not tolerating pain meds/residual pain, etc. They understand and wish to proceed. Informed Consent: The patient's anesthetic plan and its attendant risks and benefits were discussed with the patient/family/POA. Questions were solicited and answers provided to the satisfaction of the patient/family/POA.
[2024-12-01] MEDS: ceFAZolin 2 GM/D5W 50 ML 2 GM/50 ML BAG IVPB (13:17)
[2024-12-01] MEDS: BUPIVACAINE/EPINEPHRINE 0.5% 50 ML VIAL 20 ML INFILTRATE (14:06)
[2024-12-01] MEDS: LACTATED RINGERS 1,000 ML 30 ML IV CONT ×2 (14:49)
--- NOTE | 2024-12-01 14:50 | W.PM.PROC2 ---
Procedure Note - Detailed Date of Procedure 12/01/24 Pre-op Diagnosis Right Rotator Cuff and Biceps Tendonitis Post-op Diagnosis Other (Right shoulder 1. Biceps tendinosis 2. Subacromial impingement with rotator tendinitis 3. Adhesive capsulitis) Procedure Performed Right shoulder arthroscopic 1. Biceps tenodesis 2. Subacromial decompression 3. Manipulation under anesthesia Surgeon Aj Solitario MD [employer] Felisa Lu PA-C Anesthesia General Findings Significant preoperative contracture confirmed with examination under anesthesia. Manipulation under anesthesia performed. The shoulder motion improved significantly. The biceps tendon was found to have severe splitting and fraying at the articular margin as well as a SLAP tear there was no glenohumeral arthritis. The posterior capsule was not contracted. No further capsule releases were required. The loop and tack anchor repair system was used for the arthroscopic biceps tenodesis at the articular margin. The subscapularis showed low-grade 15% fraying. Bursal side showed hyperemia and minimal fraying. The bursa was very thick and hypertrophic it was excised. Acromioplasty was performed at the anterolateral acromion with the arthroscopic bur. Description of Procedure Preoperative antibiotics were given. The patient was brought to the operating room. Careful positioning in the beach chair was accomplished. The head neck were carefully positioned. A small bump was placed under the shoulder. The shoulder was prepped and draped in the usual sterile fashion. Examination under anesthesia performed. Initial elevation was 110?, external rotation 30?, internal rotation 20?; after manipulation elevation was 155?, external rotation 70? and internal rotation 45?. Standard posterior and anterior arthroscopic portals were established. The articular cartilage was healthy but there was a mild capsulitis. The glenohumeral articulation was nicely mobilized by the previous manipulation. The biceps was clearly splitting and tearing. There was a SLAP tear as well. Mild anterior labral fraying all treated with the arthroscopic shaver. The loop intact suture was placed around and through the biceps tendon. It was secured with a 4.75 SwiveLock anchor at the articular margin. The supraspinatus showed mild low-grade fraying about 15% which was debrided. The rest of the cuff and capsule were healthy. Attention was turned to the subacromial space. The bursa was quite thickened and proliferative. A complete bursectomy was performed. The rotator cuff looked good despite hyperemia. Minimal low-grade fraying diffusely without any actual tearing. The previous articular tear was marked with a PDS suture and the overlying bursal side tendon appeared robust and healthy. An accessory lateral portal was created. The acromion was clearly visualized. The coracoacromial ligament was released. Careful acromioplasty was performed with the arthroscopic bur. Loose bone fragments were carefully irrigated from the joint. The arthroscopic instruments were removed. The wounds were closed with interrupted 3-0 Monocryl suture followed by Steri-Strips. A sterile dressing was applied with a sling. The patient was extubated and brought to the recovery room in stable condition. There were no complications. Implants Arthrex SwiveLock bio absorbable 4.75 mm anchor. Estimated Blood Loss 10 Drains No Packing No Pathology None sent Complications No immediate complications Condition Stable Disposition PACU [facility] Billing Surgery - Charge Forward: Surgery Billing
[2024-12-01 15:02] LABS: Glucose Point of Care 125 mg/dl (65-105)
[2024-12-01] MEDS: SUGAMMADEX SODIUM 200 MG/2 ML VIAL IV PUSH (15:15)
[2024-12-01] MEDS: fentaNYL CITRATE INJ (*CRX) 100 MCG/2 ML VIAL 25 MCG IV PUSH ×4 (15:22→15:53)
[2024-12-01] MEDS: oxyCODONE HCL (*CRX) 5 MG TAB IR PO (16:27)
== END 2024-12-01 17:10 | disposition home or self-care (01) ==
PROVIDERS: Anesthesiology; PCP Family Medicine; Visit Provider Orthopaedic Surgery
PROC: (CPT 29805; principal; 2024-12-01 13:00)
DX: S43.431A Superior glenoid labrum lesion of right shoulder, initial encounter (principal); M75.81 Other shoulder lesions, right shoulder; M75.21 Bicipital tendinitis, right shoulder; X58.XXXA Exposure to other specified factors, initial encounter; I10 Essential (primary) hypertension; E11.9 Type 2 diabetes mellitus without complications; E78.2 Mixed hyperlipidemia; Z79.84 Long term (current) use of oral hypoglycemic drugs; Z79.4 Long term (current) use of insulin; Z79.891 Long term (current) use of opiate analgesic; Z98.890 Other specified postprocedural states; Z98.1 Arthrodesis status; Z80.1 Family history of malignant neoplasm of trachea, bronchus and lung; Z82.49 Family history of ischemic heart disease and other diseases of the circulatory system
CPT/HCPCS: 29828; 29826; 36415; 80048; 82948; A4565; A9270; C1713; J0171; J0690; J1100; J1885; J2003; J2250; J2405; J2704; J3010; J7120